=== PATIENT | male | born 1995 | race Caucasian/White ===

== ENCOUNTER 2018-06-17 22:09 | Emergency (ER) | payer OTHER ==
--- NOTE | 2018-06-17 22:23 | ER Report ---
History and Physical Time Seen By MD: 22:23 Hx. of Stated Complaint: was prying something up from the floor it got loose pts hand slammed into concrete floor HPI/ROS CHIEF COMPLAINT: Hand injury HISTORY OF PRESENT ILLNESS: This is a 46-year-old male. He was prying something loose from the floor when it gave way suddenly and he slammed his hand down into the concrete. Pain in the right hand in the area of the fourth and fifth met acarpals. He has normal sensation. He can move the hand but it does cause pain. Allergies: Coded Allergies: No Known Drug Allergies (Unverified , 06/17/18) Reviewed Nurses Notes: Yes Constitutional Vital Sign - Last 24 Hours 06/17/18 22:16 Temp 98.4 Pulse 76 Resp 16 B/P (MAP) 147/93 Pulse Ox 93 O2 Delivery Room Air Physical Exam Gen.: Alert, no acute distress. Skin: No skin breakdown or rash: Musculoskeletal: Pain over the area of the fourth and fifth metacarpals and the carpal bones but no pain in the wrist or in the phalanges. Normal active and passive range of motion. Neuro: Normal sensation. Cardiovascular: Normal cap refill. Medical Decision Making EKG/Imaging Imaging EXAMINATION: Right hand, 3 views 06/17/2018 10:25 PM HISTORY: hand injury, 4th and 5th metacarpal area COMPARISON: None FINDINGS: Visualized bony structures are intact and anatomically aligned without fracture or other acute osseous abnormality evident. IMPRESSION: Negative exam. Report Dictated By: Camilo Payne MD at 06/17/2018 11:12 PM ED Course/Re-evaluation ED Course Imaging negative for fracture. Reviewed this result as well as conservative management with the patient. Decision to Disposition Date: June 17, 2018 Decision to Disposition Time: 23:39 Depart Departure Latest Vital Signs Vital Signs Date Time Temp Pulse Resp B/P (MAP) Pulse Ox O2 Delivery O2 Flow Rate FiO2 06/17/18 22:16 98.4 76 16 147/93 93 Room Air Impression: Primary Impression: Contusion of hand, right Condition: Improved Disposition: HOME OR SELF-CARE Patient Instructions: Contusion in Adults (ED) Additional Instructions: Ibuprofen 200mg over the counter tablets, take 4 tablets three times a day with food. Apply ice for about 20 minutes every 1-2 hours while awake. An MARIA VICTORIA wrap can be used for compression to help reduce swelling. Rest the injured area, keep it elevated while at rest. Begin gentle range of motion exercises. Problem Qualifiers Primary Impression: Contusion of hand, right Encounter type: initial encounter Qualified Codes: S60.221A - Contusion of right hand, initial encounter SABINE GRAHAM MD June 17, 2018 22:23
[2018-06-17 23:00] VITALS: BP 129/81
--- NOTE | 2018-06-17 23:17 | RADIOLOGY IMAGING REPORT ---
FACILITY: [facility] PATIENT NAME: Jamshid Mendez : 1995 MR: [id number] V: [id number] EXAM DATE: ORDERING PHYSICIAN: SABINE GRAHAM TECHNOLOGIST: [place] [facility] [place] Patient: Jamshid Mendez : 1995 Visit/Account:[id number] Date of Sevice: 06/17/2018 EXAMINATION: Right hand, 3 views 06/17/2018 10:25 PM HISTORY: hand injury, 4th and 5th metacarpal area COMPARISON: None FINDINGS: Visualized bony structures are intact and anatomically aligned without fracture or other a cute osseous abnormality evident. IMPRESSION: Negative exam. Report Dictated By: Camilo Payne MD at 06/17/2018 11:12 PM Report E-Signed By: Camilo Payne MD at 06/17/2018 11:13 PM WSN:[id number]
== END 2018-06-17 23:49 | disposition home or self-care (01) ==
LOC: ER 22:24
DX: S60.221A Contusion of right hand, initial encounter (principal)
CPT/HCPCS: 99283